=== PATIENT | male | born 1955 ===

== ENCOUNTER 2025-04-09 02:29 | Emergency (ER) | payer OTHER, SELFPAY ==
[2025-04-09] MEDS ORDERED: Ibuprofen 200 MG TAB ONE (05:26)
== END 2025-04-09 05:30 | disposition home or self-care (01) ==
LOC: ERS 02:29
DX: S50.12XA Contusion of left forearm, initial encounter (principal); F17.210 Nicotine dependence, cigarettes, uncomplicated; W20.8XXA Other cause of strike by thrown, projected or falling object, initial encounter
CPT/HCPCS: 99283